=== PATIENT | female | born 1990 | race Caucasian/White ===

== ENCOUNTER 2019-05-22 16:48 | Emergency (ER) | payer MEDICAID ==
[~2019-05-22] VITALS: Ht 182.9 cm; Wt 73.0 kg
[2019-05-22 17:33] VITALS: BP 98/61
== END 2019-05-22 20:08 | disposition left against medical advice (07) ==
LOC: ER 16:48
DX: R10.9 Unspecified abdominal pain (principal); Z53.21 Procedure and treatment not carried out due to patient leaving prior to being seen by health care provider

== ENCOUNTER 2020-06-02 08:15 | Emergency (ER) | payer MEDICAID ==
[~2020-06-02] VITALS: Ht 182.9 cm; Wt 68.0 kg
[2020-06-02] MEDS ORDERED: FAMOTIDINE 20MG/2ML VIAL IV STA (08:45)
[2020-06-02] MEDS ORDERED: ONDANSETRON HCL 4MG/2ML INJ IV STA (08:45)
[2020-06-02] MEDS ORDERED: MORPHINE SULFATE 4 MG/ML CPJ (NOT FOR IM USE) IV STA (08:45)
[2020-06-02] MEDS ORDERED: SODIUM CHLORIDE 0.9% 1,000 ML IV ONE (08:45)
[2020-06-02 08:47] VITALS: BP 100/56
[2020-06-02 09:34] LABS: HEMATOCRIT. 46.3 % (36.0-48.0); HEMOGLOBIN. 15.5 g/dL (12.0-16.0); MEAN CORPUSCULAR HEMOGLOBIN 30.3 pg (28.0-32.0); MEAN CORPUSCULAR VOLUME 90.5 fL (81.0-99.0); MEAN PLATELET VOLUME 7.7 fl (7.4-10.4); PLATELET 432 x1000/uL (130-400); RED BLOOD CELL COUNT 5.12 mill/uL (4.2-5.4); RED CELL DISTRIBUTION WIDTH 13.4 % (11.6-14.6)
[2020-06-02 09:44] LABS: CHLORIDE 105 mEq/L (98-107); PROTHROMBIN TIME 10.3 sec (9.6-11.0)
[2020-06-02] MEDS ORDERED: SODIUM CHLORIDE 0.9% 1000ML BAG (SEPSIS BOLUS) IV ONE (09:45)
[2020-06-02] MEDS ORDERED: PIPERACILLIN/TAZ 3.375G PREMIX 50 ML IV ONE (09:45)
[2020-06-02 09:47] LABS: HCG SCREEN NEGATIVE
[2020-06-02 09:50] LABS: ETHANOL BLOOD < 10 mg/dL
[2020-06-02 10:52] LABS: PLATELET ESTIMATE INCREASED
[2020-06-02 11:00] LABS: CLARITY URINE CLOUDY (CLEAR); COLOR URINE DARK YELLOW (YELLOW); KETONES URINE TRACE (NEGATIVE); LEUKOCYTE ESTERASE URINE 1+ (NEGATIVE); NITRITE URINE NEGATIVE (NEGATIVE); OCCULT BLOOD URINE NEGATIVE (NEGATIVE); PROTEIN URINE 1+ (NEGATIVE); SPECIFIC GRAVITY URINE 1.033 (1.005-1.030)
[2020-06-02 11:21] LABS: *BARBITURATES SCREEN URINE NEGATIVE (NEGATIVE); *BENZODIAZEPINES SCREEN URINE NEGATIVE (NEGATIVE); *COCAINE SCREEN URINE NEGATIVE (NEGATIVE); METHADONE URINE SCREEN NEGATIVE (NEGATIVE); OPIATES URINE SCREEN NEGATIVE (NEGATIVE); PHENCYCLIDINE URINE SCREEN NEGATIVE (NEGATIVE)
[2020-06-02 11:23] LABS: CANNABINOID URINE SCREEN NEGATIVE (NEGATIVE)
[2020-06-02 11:29] LABS: *AMPHETAMINES SCREEN URINE PRESUMTIVE POSITIVE (NEGATIVE)
== END 2020-06-02 10:30 | disposition left against medical advice (07) ==
LOC: ER 08:24 → EDBEDREQTM 09:54 → EDBEDREQ 09:54 → ER 10:30 → CANBEDREQ 16:41
DX: R10.9 Unspecified abdominal pain (principal); R11.10 Vomiting, unspecified; R19.7 Diarrhea, unspecified; R65.10 Systemic inflammatory response syndrome (SIRS) of non-infectious origin without acute organ dysfunction; F15.10 Other stimulant abuse, uncomplicated
CPT/HCPCS: 36415; 71045; 80053; 80305; 80320; 81003; 83690; 84703; 85025; 85610; 86850; 86900; 86901; 87086; 93005; 96361; 96374; 96375; 99285; J2270; J2405; J2543; J3490; J7030; G0480